=== PATIENT | female | born 1960 | race African-American/Black ===

== ENCOUNTER 2017-10-09 14:48 | Emergency (ER) | payer OTHER ==
[~2017-10-09 14:48] MED LIST: OMEP20TA PO; [UNRECOGNIZED DRUG - CODE] IM
[2017-10-09 15:07] VITALS: BP 151/93; PULSE 75; RESP 18; TEMP 98.3; O2SAT 97
--- NOTE | 2017-10-09 16:47 | PD ---
HPI Chief Complaint: Medical Clearance Time Seen by Provider: 15:59 Travel History International Travel<30 days: No Contact w/Intl Traveler<30days: No Traveled to known affect area: No History of Present Illness HPI 57-year-old female arrives to the ER stating she would like to have her psychotropic indications reviewed and suggested. She reports not really understanding of what to take and one to take it. Evidently she has more than 10 bottles of medications at home is somewhat disorganized fashion. Today she got into an argument with her nephew elevating her measure of concern. She denies any thoughts of hurting herself or others. She denies hallucinations. There is no medical complaint offered today. The location is neuropsychiatric. The timing is constant. Pain level is 0. PFSH Past Medical History Anemia: Yes Anxiety: Yes Cardiovascular Problems: No High Cholesterol: Yes Diminished Hearing: Yes (HEARING IN RIGHT EAR IS SLIGHTLY DIMINISHED) Genitourinary: No Psychiatric: Yes Reproductive: No Respiratory: No Immunizations Current: No Schizophrenia: Yes (PARANOID--) Seizures: Yes (PARANOID--) Menopausal: Yes : 7 Para: 3 Miscarriage: 2 : 2 Past Surgical History Abdominal Surgery: Yes (TUMOR REMOVED FROM BELOW UMBILICAL AREA IN 1989 AT [facility]) Section: Yes (1978 AND 1999) Cholecystectomy: Yes (2005) Hysterectomy: Yes (PARTIAL) Social History Alcohol Use: No Tobacco Use: Yes (HALF PACK PER DAY) Substance Use: No (PAST USE MARIJUANA) Allergies-Medications (Allergen,Severity, Reaction): Coded Allergies: banana (Verified Allergy, Unknown, 10/09/17) Reported Meds & Prescriptions Reported Meds & Active Scripts Active Omeprazole 20 Mg Tab 20 Mg PO DAILY 28 Days Reported Abilify Maintena 300 mg inj (Aripiprazole) 300 Mg Inj 300 Mg IM MONTHLY *FOR INTRAMUSCULAR USE ONLY* Review of Systems Except as stated in HPI: all other systems reviewed are Neg General / Constitutional: No: Fever Physical Exam Narrative GENERAL: Pleasant 57-year-old female no acute distress Vital Signs Date Time Temp Pulse Resp B/P (MAP) Pulse Ox O2 Delivery O2 Flow Rate FiO2 10/09/17 15:07 98.3 75 18 151/93 (112) 97 SKIN: Warm and dry. HEAD: Atraumatic. Normocephalic. EYES: Pupils equal and round. No scleral icterus. No injection or drainage. ENT: No nasal bleeding or discharge. Mucous membranes pink and moist. NECK: Trachea midline. No JVD. CARDIOVASCULAR: Regular rate and rhythm. RESPIRATORY: No accessory muscle use. Clear to auscultation. Breath sounds equal bilaterally. GASTROINTESTINAL: Abdomen soft, non-tender, nondistended. Hepatic and splenic margins not palpable. MUSCULOSKELETAL: Extremities without clubbing, cyanosis, or edema. No obvious deformities. NEUROLOGICAL: Awake and alert. No obvious cranial nerve deficits. Motor grossly within normal limits. Five out of 5 muscle strength in the arms and legs. Normal speech. PSYCHIATRIC: Appropriate mood and affect; insight and judgment normal. Data Data Last Documented VS Vital Signs Date Time Temp Pulse Resp B/P (MAP) Pulse Ox O2 Delivery O2 Flow Rate FiO2 10/09/17 15:07 98.3 75 18 151/93 (112) 97 Orders Orders Psych Screen (10/09/17 15:10) Ed Discharge Order (10/09/17 16:47) MDM Medical Decision Making Medical Screen Exam Complete: Yes Emergency Medical Condition: Yes Differential Diagnosis Polypharmacy, schizophrenia, adjustment reaction Narrative Course The patient has multiple medications and would like to have someone reconcile them with her. She has approximately 15 pill bottles home which are disorganized. After long discussion she agreed to follow-up with her pharmacist later today or tomorrow to discuss what medication she is to take and when. Patient is quite amenable with this plan and arrives here voluntarily and is therefore most reasonably dispositioned as discussed. It is doubtful that we would be able to effectively reconcile her medications here. An inpatient stay which would be proceeded by psych screen may effectively allow for a review of the patient's meds however it would be a gross overutilization of resources and is still not guaranteed nor is effective follow -up. Patient states her pharmacy is across the street from her house and to follow-up there is been no means an inconvenience.. Diagnosis Primary Impression: Polypharmacy Med/Other Pt SpecificInfo: No Change to Meds Disposition: 01 DISCHARGE HOME Condition: Stable Clement Hooker MD Oct 09, 2017 16:47
== END 2017-10-09 17:02 | disposition home or self-care (01) ==
LOC: NEPD 14:48
DX: Z00.8 Encounter for other general examination (principal); D64.9 Anemia, unspecified; F41.9 Anxiety disorder, unspecified; E78.00 Pure hypercholesterolemia, unspecified; F20.0 Paranoid schizophrenia; R56.9 Unspecified convulsions; F17.200 Nicotine dependence, unspecified, uncomplicated; Z79.899 Other long term (current) drug therapy
CPT/HCPCS: 99281